=== PATIENT | male | born 1985 | race African-American/Black ===

== ENCOUNTER 2018-09-04 11:02 | Observation (INO) | payer MEDICAID ==
[2018-09-04] MEDS: DEXAMETHASONE 10 MG/ML 1 ML INJ IV ×2 (12:43→18:45)
[2018-09-04] MEDS: KETOROLAC 30 MG INJ IV (12:44)
[2018-09-04] MEDS: SOD CHLORIDE 0.9% 100 ML (13:03)
[2018-09-04] MEDS: IODIXANOL LOCM 100 ML BTL (13:03)
[2018-09-04] MEDS: AMPICILLIN/SULB 3 GM/NS (PMX) 100 ML IVPB (13:09)
[2018-09-04] MEDS: SOD CHLORIDE 0.9% 1,000 ML IV ×2 (13:52→18:45)
[2018-09-04 14:52] LABS: ADD MAN DIFF? NO
[2018-09-04 14:53] LABS: WHITE BLOOD COUNT 15.3 10^3/ul (4.8-10.8)
[2018-09-04 14:53] LABS: BASOPHILS % 0.1 % (0.0-2.0); EOSINOPHILS # 0.1 10^3/ul (0.0-0.5); EOSINOPHILS % 0.4 % (0.0-7.0); HEMATOCRIT 40.5 % (42.0-52.0); HEMOGLOBIN 13.8 g/dl (14.0-18.0); LYMPHOCYTES # 0.8 10^3/ul (0.8-2.9); LYMPHOCYTES % 5.4 % (15.0-51.0); MEAN CORPUSCULAR HEMOGLOBIN 30.5 pg (29.0-33.0); MEAN CORPUSCULAR HGB CONC 34.1 g/dl (32.0-37.0); MEAN CORPUSCULAR VOLUME 89.4 fl (82.0-101.0); MEAN PLATELET VOLUME 9.3 fl (7.4-10.4); MONOCYTE # 0.5 10^3/ul (0.3-0.9); MONOCYTES % 3.2 % (0.0-11.0); NEUTROPHIL # 13.8 10^3/ul (1.6-7.5); NEUTROPHILS % 90.6 % (39.0-77.0); PLATELET COUNT 207 10^3/UL (140-415); RED BLOOD COUNT 4.53 10^6/ul (4.70-6.10); RED CELL DISTRIBUTION WIDTH 11.3 % (11.5-14.5)
[2018-09-04] MEDS ORDERED: ACETAMINOPHEN 325 MG TAB PO ×2 (15:00→18:30)
[2018-09-04] MEDS ORDERED: ONDANSETRON 4 MG INJ IV (15:00)
[2018-09-04 15:18] LABS: ANION GAP 6 (5-13); BLOOD UREA NITROGEN 10 mg/dl (7-20); CALCIUM 8.5 mg/dl (8.4-10.2); CARBON DIOXIDE 32 mmol/L (21-31); CHLORIDE 102 mmol/L (97-110); CREATININE 0.79 mg/dl (0.61-1.24); Estimated GFR > 60 mL/min (>60); GLUCOSE 98 mg/dl (70-220); SODIUM 140 mmol/L (135-144)
[2018-09-04] MEDS ORDERED: DOCUSATE SODIUM 100 MG CAP PO (18:30)
[2018-09-04] MEDS ORDERED: IBUPROFEN 600 MG TAB PO (18:30)
[2018-09-04] MEDS ORDERED: morphine 2 MG INJ IV (18:30)
[2018-09-04] MEDS ORDERED: NACL 0.9% 3 ML SYG IV (18:30)
[2018-09-04] MEDS ORDERED: ZOLPIDEM 5 MG TAB PO (18:30)
[2018-09-04] MEDS: OXYCODONE/ACETAMINOPHEN (5/325) TAB PO (18:46)
[2018-09-05] MEDS: DEXAMETHASONE 10 MG/ML 1 ML INJ IV ×3 (00:20→14:35)
[2018-09-05] MEDS: AMPICILLIN/SULB 3 GM/NS (PMX) 100 ML IVPB ×4 (00:20→18:00)
[2018-09-05] MEDS: SOD CHLORIDE 0.9% 1,000 ML IV ×3 (02:28→14:35)
[2018-09-05] MEDS: OXYCODONE/ACETAMINOPHEN (5/325) TAB PO ×2 (04:38→15:20)
[2018-09-05 04:58] LABS: ADD MAN DIFF? NO
[2018-09-05 05:01] LABS: WHITE BLOOD COUNT 17.5 10^3/ul (4.8-10.8)
[2018-09-05 05:01] LABS: BASOPHILS % 0.1 % (0.0-2.0); HEMOGLOBIN 14.5 g/dl (14.0-18.0); LYMPHOCYTES # 0.8 10^3/ul (0.8-2.9); LYMPHOCYTES % 4.8 % (15.0-51.0); MEAN CORPUSCULAR HEMOGLOBIN 30.3 pg (29.0-33.0); MEAN CORPUSCULAR HGB CONC 34.5 g/dl (32.0-37.0); MEAN CORPUSCULAR VOLUME 87.9 fl (82.0-101.0); MEAN PLATELET VOLUME 10.1 fl (7.4-10.4); MONOCYTE # 0.3 10^3/ul (0.3-0.9); MONOCYTES % 1.6 % (0.0-11.0); NEUTROPHIL # 16.3 10^3/ul (1.6-7.5); NEUTROPHILS % 93.2 % (39.0-77.0); PLATELET COUNT 273 10^3/UL (140-415); RED BLOOD COUNT 4.78 10^6/ul (4.70-6.10); RED CELL DISTRIBUTION WIDTH 11.3 % (11.5-14.5)
[2018-09-05 05:28] LABS: HEMOGLOBIN A1C 5.2 % (0-5.9)
[2018-09-05 06:00] LABS: ALANINE AMINOTRANSFERASE 19 IU/L (13-69); ALBUMIN 3.6 g/dl (3.3-4.9); ALBUMIN/GLOBULIN RATIO 1.09; ALKALINE PHOSPHATASE 62 IU/L (42-121); ANION GAP 6 (5-13); ASPARTATE AMINO TRANSFERASE 18 IU/L (15-46); BILIRUBIN,INDIRECT 1.5 mg/dl (0-1.1); BILIRUBIN,TOTAL 1.5 mg/dl (0.2-1.3); BLOOD UREA NITROGEN 10 mg/dl (7-20); CALCIUM 8.8 mg/dl (8.4-10.2); CARBON DIOXIDE 28 mmol/L (21-31); CHLORIDE 103 mmol/L (97-110); CREATININE 0.63 mg/dl (0.61-1.24); Estimated GFR > 60 mL/min (>60); GLUCOSE 136 mg/dl (70-220); MAGNESIUM 1.9 mg/dl (1.7-2.5); PHOSPHORUS 2.8 mg/dl (2.5-4.9); POTASSIUM 4.5 mmol/L (3.5-5.1); SODIUM 137 mmol/L (135-144); TOTAL PROTEIN 6.9 g/dl (6.1-8.1)
[2018-09-05 14:06] LABS: THYROID STIMULATING HORMONE 0.052 MIU/L (0.465-4.680)
[2018-09-07 12:06] LABS: ASO TITER 177 IU/mL (<200)
== END 2018-09-05 18:00 | disposition home or self-care (01) ==
LOC: FTE 11:02 → PP2 14:38
DX: J36 Peritonsillar abscess (principal); E05.90 Thyrotoxicosis, unspecified without thyrotoxic crisis or storm; F17.210 Nicotine dependence, cigarettes, uncomplicated
CPT/HCPCS: 70491; 80048; 80053; 83036; 83735; 84100; 84443; 85025; 86060; 96374; 96375; 99285-25; G0378